=== PATIENT | male | born 1995 | race Caucasian/White ===

== ENCOUNTER 2016-07-02 10:04 | Day surgery (SDC) | payer OTHER ==
[~2016-07-02] VITALS: Ht 182.9 cm; Wt 93.0 kg
[2016-07-02] VITALS (13 sets, daily range): BP systolic 122–156; BP diastolic 61–99; PULSE 68–98; RESP 15–29
[~2016-07-02 10:04] MED LIST: ACET500T98
[2016-07-02] MEDS ORDERED: POLYMYXIN/BACITRACIN 1L IRRIG ONE (10:17)
[2016-07-02] MEDS ORDERED: MIDAZOLAM 1 MG/ML 2 ML INJ ONE (11:48)
[2016-07-02] MEDS ORDERED: METOCLOPRAMIDE 10 MG INJ ONE (11:49)
[2016-07-02] MEDS ORDERED: ROPIVACAINE 0.5 % 30 ML VIAL ONE (11:49)
--- NOTE | 2016-07-02 12:11 | HPN ---
Date/Time of Note Date/Time of Note DATE: 07/02/16 TIME: 12:11 Interval H&P Admission Note Pt. seen H&P reviewed: No system changes ANTONIA LARSEN MD July 02, 2016 12:11
[2016-07-02] MEDS ORDERED: HYDROmorphONE 2 MG/ML SYG ONE (12:22)
[2016-07-02] MEDS ORDERED: morphine 2 MG INJ IV PRN (12:30)
[2016-07-02] MEDS ORDERED: OXYCODONE/ACETAMINOPHEN (5/325) TAB PO SCH (12:30)
[2016-07-02] MEDS ORDERED: PROPOFOL 60 ML ONE (13:16)
[2016-07-02] MEDS ORDERED: ROCURONIUM 50 MG INJ ONE ×3 (13:16→14:22)
[2016-07-02] MEDS ORDERED: MEPERIDINE 100 MG INJ ONE (14:44)
[2016-07-02] MEDS ORDERED: METOPROLOL 5 MG INJ ONE (14:54)
[2016-07-02] MEDS ORDERED: ONDANSETRON 4 MG INJ IV PRN (15:30)
[2016-07-02] MEDS ORDERED: hydrALAzine 20 MG INJ IV PRN (15:30)
[2016-07-02] MEDS ORDERED: MEPERIDINE 25 MG INJ IV PRN (15:30)
[2016-07-02] MEDS ORDERED: HYDROmorphONE (0.2 MG/ML) 10ML SYG IV PRN ×2 (15:30)
[2016-07-02] MEDS ORDERED: LABETALOL HCL 20MG INJ IV PRN (15:30)
[2016-07-02] MEDS ORDERED: DIPHENHYDRAMINE 50 MG INJ IV PRN (15:30)
[2016-07-02] MEDS ORDERED: METOCLOPRAMIDE 10 MG INJ IV PRN (15:30)
[2016-07-02] MEDS ORDERED: OXYCODONE/ACETAMINOPHEN (5/325) TAB PO PRN ×2 (15:30)
[2016-07-02] MEDS ORDERED: CEFAZOLIN 1 GM INJ ONE (15:51)
[2016-07-02] MEDS ORDERED: KETOROLAC 30 MG INJ ONE (15:51)
[2016-07-02] MEDS ORDERED: BACITRACIN/POLYMYXIN 28.35 GM OINT TOP ONE (16:05)
[2016-07-02] MEDS ORDERED: ONDANSETRON 4 MG INJ ONE (16:18)
[2016-07-02] MEDS: HYDROmorphONE (0.2 MG/ML) 10ML SYG IV PRN ×3 (16:39→16:54)
--- NOTE | 2016-07-02 16:49 | OPR ---
Date/Time of Note Date/Time of Note DATE: 07/02/16 TIME: 16:47 Operative Report Procedure Date: July 02, 2016 Preoperative Diagnosis Right first intra-articular metatarsal shaft fracture Right Lisfranc joint dislocation Postoperative Diagnosis Right first intra-articular metatarsal shaft fracture Right Lisfranc joint dislocation Operation Performed Right foot first metatarsal open reduction internal fixation Right foot Lisfranc tarsometatarsal joint open reduction internal fixation Surgeon: ANTONIA LARSEN MD Anesthesia: general, other (Popliteal block) Anesthesiologist: TYLOR TAVARES MD Tourniquet Time: 130 minutes at 250 mmHg Estimated Blood Loss: 10 - 50 ml's Complications: None Pt Condition Post Procedure: stable Disposition: PACU ANTONIA LARSEN MD July 02, 2016 16:49
--- NOTE | 2016-07-03 09:04 | RADRPT ---
PROCEDURE: Intraoperative imaging of the right foot with fluoroscopy. CLINICAL INDICATION: Right foot pain. Intraoperative. TECHNIQUE: 5 images of the right foot were obtained in the operating room with an image intensifie r. No radiologist was in attendance. 80 seconds of fluoroscopy time was used. COMPARISON: Right foot radiographs dated 08/21/2013. FINDINGS: Images demonstrate open reduction and internal fixation with a plate and multiple screws transfixing the fracture of the first metatarsal and a screw transfixing the medial and intermediate cuneiforms . IMPRESSION: 1. Intraoperative imaging of the right foot. RPTAT: QQ .Antoine Riley MD, MD Date Time Electronically viewed and signed by .Antoine Riley MD, MD on 07/03/2016 09:04 .R/
--- NOTE | 2016-07-03 18:03 | QN ---
Documentation Job number: [id number] ANTONIA LARSEN MD July 03, 2016 18:03
--- NOTE | 2016-07-03 20:24 | OPR ---
DATE OF OPERATION: 07/02/2016 POSTOPERATIVE DIAGNOSES: 1. Right first metatarsal shaft fracture with interarticular extension. 2. Right Lisfranc first and second tarsometatarsal joint subluxation. POSTOPERATIVE DIAGNOSIS: 1. Right first metatarsal shaft fracture with interarticular extension. 2. Right Lisfranc joint dislocation of the first and second tarsometatarsal joints. OPERATION PERFORMED: 1. Right first metatarsal shaft open reduction and internal fixation. 2. Right foot Lisfranc first and second tarsometatarsal joint open reduction internal fixation. SURGEON: Tony Post MD ANESTHESIOLOGIST: Tigist Farah MD. ANESTHESIA: General with popliteal block. TOURNIQUET TIME: 130 minutes at 250 mmHg. ESTIMATED BLOOD LOSS: 10 mL. COMPLICATIONS: None. IMPLANTS: One Qompium Ortholoc 3Di plate, one Qompium Lisfranc 3.5 mm screw, and two Qompium compression headless screws, 3.0 and 2.0. INDICATIONS: The patient is a 20-year-old male who sustained a right first metatarsal shaft fracture with interarticular extension and a Lisfranc fracture joint dislocation approximately 2 weeks ago. Given the patient's CT findings and x-ray findings, the patient was indicated for open reduction and internal fixation to stabilize the Lisfranc joint and first metatarsal shaft fracture. RISK NOTE: The patient was explained risks and benefits of surgery in the patient's [place] language including, but not limited to infection, bleeding, loss of limb, loss of life, need for future surgery, risk of injury to blood vessels, nerves, ligaments, tendons, risk of need for future surgery. Patient acknowledges these risks and signs surgical consent form. OPERATIVE NOTE: The patient was met in the preoperative holding area and operative side was confirmed with both patient and via consent. The patient was then given preoperative regional anesthesia and brought back to the operative theater, placed supine on operative table, and given preoperative antibiotics. The patient was then prepped and draped in normal sterile fashion and timeout was taken. All parties in the room agreed to the correct patient, extremity, and procedure. Tourniquet had been placed nonsterilely initially, and then after the timeout was taken, an Esmarch was brought up and tourniquet was inflated to 250 mmHg. Initially, incision was taken down in the interval between the first and second MTP joints and first and second metatarsals. Incision was brought down with care to avoid any injury to any neurovascular structures, and the neurovasculature was retracted and protected throughout the case. The Lisfranc joint was identified and shown to be unstable on palpation, as well as multiple fractures within the first metatarsal shaft extending to the mid portion of the metaphysis all the way to the intra-articular surface. Once the fracture site was identified, the fracture was then reduced and hematoma was removed. The fracture was then reduced and held in position with several K-wires. Once the fracture was reduced in the AP, lateral, and oblique positions, 2 headless compression screws were placed across the fracture site to obtain fixation of the fracture, and then a [facility] 3Di compression plate was then placed across the first tarsometatarsal joint in order to obtain bridge fixation to enable adequate healing of both the middle shaft fracture and also to enable healing of the Lisfranc fracture dislocation. The plate was placed across the joint and initially fixated on the distal side with nonlocking and locking screws, followed by fixation decompression on the proximal side. Once this joint was shown to be well reduced in AP and lateral fluroscopic position, attention was then turned to the Lisfranc joint. The intermetatarsal space was debrided of any debris and loose cartilage from the injury, and the second metatarsal base was then reduced to the first cuneiform using a large reduction clamp, and then the K-wire was initially placed followed by a drill and then a 3.7 mm noncannulated screw was placed from the base of the first cuneiform to the second metatarsal base. This is shown to be excellently reduced and the space and interval in the first tarsometatarsal joint was reduced. All wounds were irrigated thoroughly. There was determined to be no intercuneiform instability, and none of the remaining metatarsals were deemed unstable. The wounds were irrigated thoroughly and closed in layers with 2-0 Vicryl followed by 3-0 Monocryl and 4-0 nylon in vertical mattress fashion. Wounds were then dressed with Xeroform, triple antibiotic ointment, 4 x 4's, ABDs, and placed in a well-padded short leg splint. All sponge and needle counts were correct. The patient was taken to PACU in stable condition. Dictated By: TONY DELA CRUZ/ROCK Conf#: [id number] [facility]#: [id number] MTDD
== END 2016-07-02 18:32 | disposition home or self-care (01) ==
LOC: SDS 10:04
PROVIDERS: ATTEND Orthopaedic Surgery
DX: S92.311A Displaced fracture of first metatarsal bone, right foot, initial encounter for closed fracture (principal); S93.324A Dislocation of tarsometatarsal joint of right foot, initial encounter; X58.XXXA Exposure to other specified factors, initial encounter; Y92.89 Other specified places as the place of occurrence of the external cause
CPT/HCPCS: 28485; 28615; 73630; C1713; J0690; J1170; J1200; J1885; J2175; J2250; J2765; J2795; Z7512; Z7610; J2405

== ENCOUNTER 2017-01-21 14:40 | Day surgery (SDC) | payer OTHER ==
[2017-01-20 10:26] VITALS: Ht 182.9 cm; Wt 86.3 kg
[~2017-01-21] VITALS: Ht 182.9 cm; Wt 86.3 kg
[2017-01-21] VITALS (10 sets, daily range): BP systolic 109–170; BP diastolic 57–88; PULSE 68–134; RESP 14–16
[2017-01-21] MEDS ORDERED: METOCLOPRAMIDE 10 MG INJ ONE (16:07)
[2017-01-21] MEDS ORDERED: MIDAZOLAM 1 MG/ML 2 ML INJ ONE (16:07)
[2017-01-21] MEDS ORDERED: FENTAnyl 50 MCG/ML VIAL ONE (16:07)
[2017-01-21] MEDS ORDERED: ROPIVACAINE 0.5 % 30 ML VIAL ONE (16:07)
[2017-01-21] MEDS ORDERED: POLYMYXIN/BACITRACIN 1L IRRIG ONE (16:10)
[2017-01-21] MEDS ORDERED: ROPIVACAINE 0.2% 20 ML VIAL ONE (16:12)
--- NOTE | 2017-01-21 17:11 | HPN ---
Date/Time of Note Date/Time of Note DATE: 01/21/17 TIME: 17:11 Interval H&P Admission Note Pt. seen H&P reviewed: No system changes ANTONIA LARSEN MD Jan 21, 2017 17:11
[2017-01-21] MEDS ORDERED: PROPOFOL 20 ML ONE ×2 (17:12→18:49)
[2017-01-21] MEDS ORDERED: HYDROmorphONE 2 MG/ML SYG ONE (17:20)
[2017-01-21] MEDS ORDERED: KETOROLAC 30 MG INJ ONE ×2 (17:20→17:48)
[2017-01-21] MEDS ORDERED: morphine 2 MG INJ IV PRN (17:30)
[2017-01-21] MEDS ORDERED: ONDANSETRON 4 MG INJ ONE (17:48)
[2017-01-21] MEDS ORDERED: BACITRACIN/POLYMYXIN 28.35 GM OINT TOP ONE (18:54)
[2017-01-21] MEDS ORDERED: MEPERIDINE 25 MG INJ ONE (19:33)
--- NOTE | 2017-01-21 19:53 | OPR ---
Date/Time of Note Date/Time of Note DATE: 01/21/17 TIME: 19:39 Operative Report Procedure Date: Jan 21, 2017 Preoperative Diagnosis Right foot hardware pain s/p Lisfranc fracture ORIF Postoperative Diagnosis Right foot hardware pain s/p Lisfranc fracture ORIF Operation/Procedure Performed Right foot hardware removal Surgeon Tony Larsen MD Leaf Coverer none Anesthesia Type: general, other (popliteal and saphenous) Anesthesiologist: TYLOR TAVARES MD Tourniquet Time: 70 minutes at 250 mm Mercury Estimated Blood Loss: 0 - 10 ml's Transfusion none Specimen None Grafts/Implants none Complications none Pt Condition Post Procedure: stable Disposition: PACU Indications Patient is a 21-year-old gentleman status post open reduction internal fixation of a Lisfranc fracture over 6 months ago. He is now having pain to the hardware and like the hardware removed. Risk Note: Patient was explained the risks and benefits of surgery and the patient's [place] language including not limited to infection, bleeding, injury to blood vessels, nerves, ligaments or tendons. Risks of anesthesia, deep vein thrombosis and need for reduce future surgery. Patient acknowledged these risk by signing the surgical consent form. Procedure Description Patient was met in the preoperative holding area and the operative extremity was confirmed with the patient and consent. The operative treatment was marked accordingly. Patient was then brought back to the operative theater and placed supine operative table given preoperative antibiotics and preoperative anesthesia and regional block. Patient was prepped and draped in the normal sterile fashion and timeout was taken in all parties in the room agreed it was the correct patient extremity and procedure. Tourniquet was brought up. Incision was made over the previous incision site and taken down to the hardware. Care was taken to avoid any injury to the neurovascular structures. The plates and screws were removed over the first metatarsal and medial cuneiform as well as the Lisfranc homerun screw was also removed from the medial aspect of the foot. After all hardware it was confirmed on fluoroscopy in both AP oblique and lateral view. In the area of the screw and plate removal from the first metatarsal demineralized bone matrix was added to fill in the area of the holes. All wounds were irrigated thoroughly and closed in layers with 3-0 Vicryl followed by a 4-0 nylon in vertical mattress fashion. Tourniquet was brought down and hemostasis was achieved prior to final closure. Wounds are dressed Xeroform, 4 x 4's, triple antibiotic ointment and placed in a compressive dressing. Patient to the PACU in a stable condition. All sponge needle counts were correct. TONY LARSEN MD Jan 21, 2017 19:49
[2017-01-21] MEDS ORDERED: MEPERIDINE 25 MG INJ IV ONE (20:00)
--- NOTE | 2017-01-22 16:25 | RADRPT ---
PROCEDURE: Intraoperative imaging of the right foot with fluoroscopy. CLINICAL INDICATION: Right foot hardware removal Intraoperative. TECHNIQUE: Four images of the right foot were obtained in the operating room with an image intensi fier. No radiologist was in attendance. 57 seconds of fluoroscopy time was used. COMPARISON: No prior study is available for comparison. FINDINGS: Intraoperative evaluation demonstrates removal of hardware across the first and second tarsometatars al joints. IMPRESSION: 1. Satisfactory intraoperative imaging of the right foot. Please see separately dictated operative note for full evaluation. RPTAT: UU .Vasyl Brock MD, MD Date Time Electronically viewed and signed by .Vasyl Borck MD, on 01/22/2017 16:25 .K/
== END 2017-01-21 20:27 | disposition home or self-care (01) ==
LOC: SDS 14:40
PROVIDERS: ATTEND Orthopaedic Surgery
DX: T84.84XA Pain due to internal orthopedic prosthetic devices, implants and grafts, initial encounter (principal); Y83.8 Other surgical procedures as the cause of abnormal reaction of the patient, or of later complication, without mention of misadventure at the time of the procedure; Y92.89 Other specified places as the place of occurrence of the external cause
CPT/HCPCS: 20680; 73630; C1713; J1170; J1885; J2175; J2250; J2405; J2765; J2795; J3010; Z7512; Z7610; 88300

== ENCOUNTER 2017-12-05 01:56 | Emergency (ER) | END 2017-12-05 04:46 | disposition home or self-care (01) ==